=== PATIENT | female | born 1955 | race Hispanic/Latino ===

== ENCOUNTER → 2017-11-09 | Outpatient (CLI) | payer BC | END | disposition home or self-care (01) | LOC: SHCH 09:20 | PROVIDERS: ATTEND Internal Medicine Cardiovascular Disease | DX: I65.23 Occlusion and stenosis of bilateral carotid arteries (principal); Z95.5 Presence of coronary angioplasty implant and graft | CPT/HCPCS: 93880 ==

== ENCOUNTER → 2018-01-22 | Outpatient (CLI) | payer OTHER | END | disposition home or self-care (01) | LOC: RAH 12:36 | PROVIDERS: ATTEND Internal Medicine Cardiovascular Disease | DX: Z13.6 Encounter for screening for cardiovascular disorders (principal) | CPT/HCPCS: 75571 ==

== ENCOUNTER → 2021-05-04 | Outpatient (CLI) | payer MEDICARE | END | disposition home or self-care (01) | LOC: SHCH 12:52 | PROVIDERS: ATTEND Internal Medicine Cardiovascular Disease | DX: R94.31 Abnormal electrocardiogram [ECG] [EKG] (principal); R55 Syncope and collapse | CPT/HCPCS: 93306; 93356; 93880 ==